=== PATIENT | male | born 1990 | race Caucasian/White ===

== ENCOUNTER 2020-09-24 02:01 | Emergency (ER) | payer OTHER ==
[~2020-09-24] VITALS: Ht 175.3 cm; Wt 66.0 kg
--- NOTE | 2020-09-24 04:31 | NUR ---
pt to room from lobby
--- NOTE | 2020-09-24 04:41 | NUR ---
pt to room and changed to gown, on cr monitor, complain of pain to body, withdrawal symptoms non specific. calm and cooperative.
[2020-09-24] MEDS ORDERED: KETOROLAC 30 MG/1 ML ONE (05:13)
[2020-09-24] MEDS ORDERED: ONDANSETRON ODT 4 MG ONE (05:13)
--- NOTE | 2020-09-24 05:23 | NUR ---
pt up to bathroom. meds given, IM and also po zofran. pt calm and awake and alert. no distress at this time.
[2020-09-24] MEDS ORDERED: KETOROLAC 30 MG/1 ML IM ONE (05:30)
[2020-09-24] MEDS ORDERED: ONDANSETRON ODT 4 MG PO ONE (05:30)
[2020-09-24 06:02] VITALS: BP 132/82
== END 2020-09-24 06:56 | disposition home or self-care (01) ==
LOC: ED 06:13
DX: F15.129 Other stimulant abuse with intoxication, unspecified (principal); F12.129 Cannabis abuse with intoxication, unspecified; F11.129 Opioid abuse with intoxication, unspecified; R51.9 Headache, unspecified; R11.0 Nausea; F17.200 Nicotine dependence, unspecified, uncomplicated
CPT/HCPCS: 96372; 99283; J1885; Q0162